=== PATIENT | female | born 1950 | race Caucasian/White ===

== ENCOUNTER → 2017-12-01 | Outpatient (CLI) | payer MEDICARE ==
[~2017-12-01] MED LIST: ALB17R INH; CITA-156 PO; D ME PO; LEV500 PO; LIS20 PO; LISI-351 PO; MOME15CR TP; OXYGEN INH; TRAM-420 PO
== END ==
LOC: LAB 16:03
PROVIDERS: ATTEND Obstetrics & Gynecology
DX: L82.1 Other seborrheic keratosis (principal)
CPT/HCPCS: 88305; 88312; 88313

== ENCOUNTER → 2018-08-10 | Outpatient (CLI) | payer MEDICARE ==
[~2018-08-10] MED LIST changes: +CLOB15OI16 TP; +ESTR1POW41 MC; +ESTR42.5 PV; +HYDR28.425
--- NOTE | 2018-08-10 09:54 | RADIOLOGY IMAGING REPORT ---
FACILITY: [facility] PATIENT NAME: Denice Foster : 1950 MR: [id number] V: [id number] EXAM DATE: ORDERING PHYSICIAN: GAURANG VIRGEN TECHNOLOGIST: Location: [facility] - [place] Patient: Denice Foster : 1950 Visit/Account:[id number] Date of Sevice: 08/10/2018 US ABD LIMITED ULTRASOUND HISTORY: Left lower quadrant pain after cough, tender COMPARISON: None. FINDINGS: Multiple images labeled left lower quadrant were submitted In the location of the patient's pain (in the left lower quadrant) there is a 1.95 x 3.47 x 5.07 cm s lightly irregular hypoechoic region just superficial to the anterior abdominal wall. This does not a ppear to represent a hernia. The appearance is nonspecific with differential diagnosis including hem atoma or a mass lesion. Comparison views of the right lower quadrant intra-abdominal wall do not dem onstrate a similar finding. IMPRESSION: There is a 1.95 x 3.47 x 5.07 cm slightly irregular hypoechoic region just superficial to the intra-a bdominal wall in the left lower quadrant (which is in the location of the patient's pain). This does not appear to represent a hernia. The appearance is nonspecific with differential diagnosis includi ng hematoma or mass lesion. Report Dictated By: Charla Corrigan MD at 08/10/2018 9:28 AM Report E-Signed By: Charla Corrigan MD at 08/10/2018 9:50 AM WSN:[email or web address]
== END ==
LOC: US 02:13
PROVIDERS: ATTEND Family Medicine
DX: R19.07 Generalized intra-abdominal and pelvic swelling, mass and lump (principal)
CPT/HCPCS: 76705

== ENCOUNTER → 2018-09-07 | Outpatient (CLI) | payer MEDICARE ==
--- NOTE | 2018-09-07 10:01 | RADIOLOGY IMAGING REPORT ---
FACILITY: [facility] PATIENT NAME: Denice Foster : 1950 MR: [id number] V: [id number] EXAM DATE: ORDERING PHYSICIAN: LARA SANCHEZ TECHNOLOGIST: Location: [facility] [place] Patient: Denice Foster : 1950 Visit/Account:[id number] Date of Sevice: 09/07/2018 CT ABDOMEN PELVIS W/O CON HISTORY: Left lower quadrant pain TECHNIQUE: Axial images acquired through the abdomen/pelvis. Coronal and sagittal reformatting also performed. No IV contrast administered.Dose Lowering Technique One of the following dose optimization techniques was utilized in the performance of this exam: Autom ated exposure control; adjustment of the mA and/or kV according to the patient's size; or use of an i terative reconstruction technique. Specific details can be referenced in the facility's radiology C T exam operational policy. COMPARISON: Abdomen limited ultrasound August 10, 2018 FINDINGS: Visualized lung bases: Mild linear stranding in the inferior lingula likely represent scarring versu s atelectasis Hepatobiliary: There is a tiny calcification in the dependent portion of the gallbladder which may r epresent a small stone or a calcification within the gallbladder wall. There is no evidence of bilia ry ductal dilatation Spleen: Negative. Adrenals: Negative. Pancreas: Negative. Kidneys ureters and bladder: There is no evidence of hydronephrosis or hydroureter. There is a small intraparenchymal calcification measuring approximately 3 mm in diameter in the lateral aspect of the interpolar region of the left kidney . Bladder is mostly decompressed therefore not ideally evalua rio Genitalia: Hysterectomy GI: The appendix is visualized does not appear inflamed. There is no evidence of bowel obstruction. There is no evidence of acute diverticulitis Vessels/spaces/nodes: There is a portal caval lymph node measuring 1.9 x 0.9 cm Bones/soft tissues: Small umbilical hernia containing fat. There is a small left inguinal hernia co ntaining fat. There are moderate spondylotic changes lumbar spine most prominent at L2-3 Additional findings: None pertinent. IMPRESSION: There is a tiny calcifications in the dependent portion the gallbladder which may represent a small s tone or calcified occasions within the gallbladder wall. There is a small 3 mm intraparenchymal calcification in the mid left kidney There is a 1.9 x 0.9 cm portacaval lymph node which may be reactive Small umbilical hernia containing fat Small left inguinal hernia containing fat Report Dictated By: Charla Corrigan MD at 09/07/2018 9:01 AM Report E-Signed By: Charla Corrigan MD at 09/07/2018 9:56 AM WSN:[email or web address]
== END ==
LOC: CT 09-03 01:04
PROVIDERS: ATTEND Nurse Practitioner Family
DX: R10.32 Left lower quadrant pain (principal)
CPT/HCPCS: 74176